=== PATIENT | female | born 1940 | race Caucasian/White ===

== ENCOUNTER 2023-12-08 16:43 | Outpatient (CLI) | payer OTHER, MEDICARE, BC, SELFPAY | END 2023-12-08 16:44 | disposition home or self-care (01) | LOC: AMB 12-15 16:22 | PROVIDERS: PCP Family Medicine; Visit Provider Family Medicine | DX: S19.9XXA Unspecified injury of neck, initial encounter (principal); V43.52XA Car driver injured in collision with other type car in traffic accident, initial encounter; Y92.410 Unspecified street and highway as the place of occurrence of the external cause | CPT/HCPCS: A0998 ==